=== PATIENT | female | born 1945 | race Caucasian/White ===

== ENCOUNTER 2023-12-16 17:04 | Emergency (ER) | payer OTHER ==
[~2023-12-16] VITALS: Ht 162.5 cm; Wt 57.6 kg
== END 2023-12-16 19:10 | disposition home or self-care (01) ==
LOC: ED 17:04
DX: S51.012A Laceration without foreign body of left elbow, initial encounter (principal); R07.89 Other chest pain; M25.552 Pain in left hip; R10.32 Left lower quadrant pain; I10 Essential (primary) hypertension; Z88.8 Allergy status to other drugs, medicaments and biological substances; V49.9XXA Car occupant (driver) (passenger) injured in unspecified traffic accident, initial encounter; Y93.89 Activity, other specified; Y92.410 Unspecified street and highway as the place of occurrence of the external cause; Y99.8 Other external cause status